=== PATIENT | male | born 1980 | race Caucasian/White ===

== ENCOUNTER 2017-05-16 17:09 | Emergency (ER) | payer OTHER ==
[2017-05-16 17:16] VITALS: TEMP 98.2; BMI 26.6
--- NOTE | 2017-05-16 17:23 | PDOC ---
History of Present Illness - History of Present Illness Initial Comments: 05/16/17 17:22 Mr. Vargas is a 36 yo male with no significant past medical history who presents to the emergency department with a one day history of crampy pain " Like a knife" to his R side radiating down to his groin. He says that pain comes and goes and has gotten worse over the last day. He denies any trauma or strain to this area. The patient denies chest pain, shortness of breath, headache and dizziness. Denies fever, chills, nausea, vomit, diarrhea and constipation. Denies dysuria, frequency, urgency and hematuria. Allergies: NKDA Past surgical history: None Social history: Social EtOH <Skyler Acevedo - Last Filed: 05/16/17 17:33> <Song Salinas - Last Filed: 05/17/17 01:11> - General Chief Complaint: Pain, Acute Stated Complaint: PAIN, ACUTE Time Seen by Provider: 05/16/17 17:21 Past History - Past Medical History Other medical history: denies. - Psycho/Social/Smoking Cessation Hx Suicidal Ideation: No Smoking History: Never smoked <Skyler Acevedo - Last Filed: 05/16/17 17:33> <Song Salinas - Last Filed: 05/17/17 01:11> - Past Medical History Allergies/Adverse Reactions: Allergies Allergy/AdvReac Type Severity Reaction Status Date / Time No Known Allergies Allergy Verified 05/16/17 17:13 Home Medications: Ambulatory Orders NK [No Known Home Medication] 05/16/17 Review of Systems - Review of Systems Comments:: 05/16/17 17:22 GENERAL/CONSTITUTIONAL: No fever or chills. No weakness. HEAD, EYES, EARS, NOSE AND THROAT: No change in vision. No ear pain or discharge. No sore throat. CARDIOVASCULAR: No chest pain or shortness of breath RESPIRATORY: No cough, wheezing, or hemoptysis. GASTROINTESTINAL: No nausea, vomiting, diarrhea or constipation. GENITOURINARY: +One day history of Right lower abdominal pain. No dysuria, frequency, or change in urination. MUSCULOSKELETAL: No joint or muscle swelling or pain. No neck or back pain. SKIN: No rash NEUROLOGIC: No headache, vertigo, loss of consciousness, or change in strength/ sensation. ENDOCRINE: No increased thirst. No abnormal weight change HEMATOLOGIC/LYMPHATIC: No anemia, easy bleeding, or history of blood clots. ALLERGIC/IMMUNOLOGIC: No hives or skin allergy. <Skyler Acevedo - Last Filed: 05/16/17 17:33> *Physical Exam - Vital Signs Last Vital Signs Temp Pulse Resp BP Pulse Ox 98.2 F 52 L 19 150/93 99 05/16/17 17:13 05/16/17 17:13 05/16/17 17:13 05/16/17 17:13 05/16/17 17:13 - Physical Exam Comments: 05/16/17 17:22 GENERAL: Awake, alert, and fully oriented, in no acute distress HEAD: No signs of trauma, normocephalic, atraumatic EYES: PERRLA, EOMI, sclera anicteric, conjunctiva clear ENT: Auricles normal inspection, hearing grossly normal, nares patent, oropharynx clear without exudates. Moist mucosa NECK: Normal ROM, supple, no lymphadenopathy, JVD, or masses LUNGS: No distress, speaks full sentences, clear to auscultation bilaterally HEART: Regular rate and rhythm, normal S1 and S2, no murmurs, rubs or gallops, peripheral pulses normal and equal bilaterally. ABDOMEN: +Some tenderness to palpation in right middle abdomen.Soft, normoactive bowel sounds. No guarding, no rebound. No masses EXTREMITIES: Normal inspection, Normal range of motion, no edema. No clubbing or cyanosis. NEUROLOGICAL: Cranial nerves II through XII grossly intact. Normal speech, normal gait, no focal sensorimotor deficits SKIN: Warm, Dry, normal turgor, no rashes or lesions noted. <Skyler Acevedo - Last Filed: 05/16/17 17:33> - Vital Signs Last Vital Signs Temp Pulse Resp BP Pulse Ox 98.2 F 75 16 132/78 96 05/16/17 17:13 05/16/17 22:53 05/16/17 22:53 05/16/17 22:53 05/16/17 22:53 <Song Salinas - Last Filed: 05/17/17 01:11> ED Treatment Course - LABORATORY CBC & Chemistry Diagram: 05/16/17 18:00 05/16/17 18:00 - ADDITIONAL ORDERS Additional order review: Laboratory Results 05/16/17 05/16/17 18:00 17:55 Sodium 139 Potassium 4.2 Chloride 104 Carbon Dioxide 27 Anion Gap 8 BUN 14 Creatinine 1.2 Creat Clearance w eGFR > 60 Random Glucose 83 Calcium 9.0 Total Bilirubin 1.8 H AST 83 H ALT 79 H Alkaline Phosphatase 55 Total Protein 6.8 Albumin 4.1 Urine Color Yellow Urine Appearance Clear Urine pH 5.0 Ur Specific [place] 1.025 Urine Protein Negative Urine Glucose (UA) Negative Urine Ketones 1+ H Urine Blood Negative Urine Nitrite Negative Urine Bilirubin Negative Urine Urobilinogen Negative Ur Leukocyte Esterase Negative 05/16/17 18:00 RBC 4.64 MCV 87.4 MCHC 34.3 RDW 13.5 MPV 8.7 Neutrophils % 66.7 Lymphocytes % 22.8 Monocytes % 9.1 Eosinophils % 0.9 Basophils % 0.5 - RADIOLOGY Radiology Studies Ordered: Category Date Time Status SPIRAL- RENAL-STONE CT [CT] Stat CT Scan 05/16/17 19:21 Completed GALLBLADDER US [US] Stat Ultrasound 05/16/17 21:01 Completed - Medications Given in the ED: ED Medications Discontinued Medications Generic Name Dose Route Start Last Admin Trade Name Freq PRN Reason Stop Dose Admin Sodium Chloride 1,000 mls @ 1,000 mls/hr 05/16/17 17:31 05/16/17 18:00 Normal Saline - IV 05/16/17 18:30 1,000 mls/hr ASDIR STA Administration Ketorolac Tromethamine 30 mg 05/16/17 21:01 05/16/17 21:00 Toradol Injection - IVPUSH 05/16/17 21:02 30 mg ONCE ONE Administration <Song Salinas - Last Filed: 05/17/17 01:11> Medical Decision Making - Medical Decision Making 05/16/17 18:57 Symptoms suspicious for kidney stone. UA ordered for F/U. Care will be continued by Dr. Salinas. <Skyler Acevedo - Last Filed: 05/16/17 17:33> *DC/Admit/Observation/Transfer - Attestations Physician Attestion: 05/16/17 18:59 I, Dr. Skyler Acevedo, attest that this document has been prepared under my direction and personally reviewed by me in its entirety. I further attest, that it accurately reflects all work, treatment, procedures and medical decision -making performed by me. <Skyler Acevedo - Last Filed: 05/16/17 17:33> - Discharge Dispostion Admit: No <Song Salinas - Last Filed: 05/17/17 01:11> Diagnosis at time of Disposition: Elevated liver enzymes Strain of abdominal muscle Qualifiers: Encounter type: initial encounter Qualified Code(s): S39.011A - Strain of muscle, fascia and tendon of abdomen, initial encounter - Discharge Dispostion Disposition: HOME Condition at time of disposition: Improved - Patient Instructions Printed Discharge Instructions: DI for Abdominal Muscle Strain Additional Instructions: Return to the emergency department immediately with ANY new, persistent or worsening symptoms. Avoid training, take Motrin/Tylenol. Apply heating pad to the area discomfort. Your liver enzymes were elevated please follow-up with Dr. Mejía should to have this repeated and reevaluated. You MUST call and follow up with your doctor tomorrow for further evaluation of your symptoms. Results were discussed with you. Please make sure your doctor reviews the results of your emergency evaluation. Print Language: MONEGASQUE
[2017-05-16] MEDS ORDERED: SODIUM CHLORIDE 1,000 ML IV STA (17:31)
--- NOTE | 2017-05-16 17:42 | PDOC ---
Attending Attestation - Resident Resident Name: Skyler Acevedo - ED Attending Attestation I have performed the following: I have examined & evaluated the patient, The case was reviewed & discussed with the resident, I agree w/resident's findings & plan, Exceptions are as noted - HPI HPI: 05/16/17 19:19 36y M no pmhx presents with complaint of abodminal pain, pain is worse inthe RLQ , gradually worsening, constant, and occasinoally radiates down to the R scrotum. No associated fever/chills, n/v, diarrhea, dysuria, hematuria. GENERAL: The patient is awake, alert, and fully oriented, Nontoxic - in no acute distress. HEAD: Normocephalic, atraumatic. EYES: extraocular movements intact, sclera anicteric, conjunctiva clear. ENT: Normal voice, Moist mucous membranes. NECK: Normal range of motion, supple LUNGS: Breath sounds equal, clear to auscultation bilaterally. No wheezes, no rhonchi, no rales. HEART: Regular rate and rhythm, normal S1 and S2 without murmur, rub or gallop. ABDOMEN: Soft, minimal RLQ tenderness, normoactive bowel sounds. No guarding, no rebound. . No CVA tenderness : non scrotal tenderness, edema/erytthema. EXTREMITIES: Normal range of motion, no edema. No clubbing or cyanosis. No cords, erythema, or tenderness. NEUROLOGICAL: No facial assymetry, Normal speech, PSYCH: Normal mood, normal affect. SKIN: Warm, Dry, normal turgor, consider possible kidney stone vs appy richard obtian blood work, UA pt declines pain meds 05/16/17 21:02 pts labs reviewed noted for mildly elevated liver enzymes, will obtain US of GB ct neg for appy nor kidney stones pt still complaining of pain consider possible muscle strain as pt was playing [place] ball yetserday and the pain does seem worse with ambulation, standing and movement. will give toradol 05/17/17 01:08 pts US is negative pt feeling improved, abd was soft nontender on repeat exam will d/c the pt with PMD fu will hav ept fu with dr. Mejía regarding his elevated LFTs. I discussed the physical exam findings, ancillary test results and final diagnoses with the patient. I answered all of the patient's questions. The patient was satisfied with the care received and felt comfortable with the discharge plan and treatment plan. The patient will call their primary care physician within 24 hours to arrange follow-up and will return to the Emergency Department with any new, persistent or worsening symptoms. - Physicial Exam PE: 05/17/17 02:23 see above - Medical Decision Making 05/17/17 02:23 see above
[2017-05-16 18:17] LABS: BASOPHIL 0.5 % (0-2.0); EOSINOPHIL 0.9 % (0-4.5); MCH 29.9 pg (25.7-33.7); MCHC 34.3 g/dl (32.0-35.9); MEAN CELL VOLUME 87.4 fl (80-96); MEAN PLT VOLUME 8.7 fl (7.5-11.1); NEUTROPHILS 66.7 % (42.8-82.8); PLATELET COUNT 199 K/MM3 (134-434); RDW 13.5 % (11.9-15.9); WHITE BLOOD COUNT 8.5 K/mm3 (4.0-10.0)
[2017-05-16 18:19] LABS: URINE APPEARANCE CLEAR; URINE BILIRUBIN NEGATIVE (NEGATIVE); URINE BLOOD NEGATIVE (NEGATIVE); URINE COLOR YELLOW; URINE GLUCOSE (UA) NEGATIVE (NEGATIVE); URINE KETONE 1+ (NEGATIVE); URINE LEUK ESTERASE NEGATIVE (NEGATIVE); URINE NITRITE NEGATIVE (NEGATIVE); URINE PROTEIN NEGATIVE (NEGATIVE); URINE UROBILINOGEN NEGATIVE mg/dL (0.2-1.0)
[2017-05-16 19:55] LABS: ALBUMIN 4.1 g/dl (3.4-5.0); ALK PHOS 55 U/L (45-117); ANION GAP 8 (8-16); BILIRUBIN,TOTAL 1.8 mg/dL (0.2-1.0); CO2 27 mmol/L (21-32); CREATININE 1.2 mg/dL (0.7-1.3); GLUCOSE,RANDOM 83 mg/dL (74-106); SGOT/AST 83 U/L (15-37); SGPT/ALT 79 U/L (12-78); TOT PROT 6.8 g/dl (6.4-8.2)
[2017-05-16] MEDS ORDERED: KETOROLAC TROMETHAMINE 60 MG/2 ML VIAL ONE (21:00)
[2017-05-16] MEDS ORDERED: KETOROLAC TROMETHAMINE 30 MG/1 ML VIAL IVPUSH ONE (21:01)
[2017-05-16 22:55] VITALS: BP 132/78; PULSE 75
== END 2017-05-17 01:13 | disposition home or self-care (01) ==
LOC: JER 17:09
PROC: 3E0333Z Introduction of Anti-inflammatory into Peripheral Vein, Percutaneous Approach (ICD-10-PCS; principal; 2017-05-16)
PROC: 3E0337Z Introduction of Electrolytic and Water Balance Substance into Peripheral Vein, Percutaneous Approach (ICD-10-PCS; 2017-05-16)
DX: S39.011A Strain of muscle, fascia and tendon of abdomen, initial encounter (principal); R74.8 Abnormal levels of other serum enzymes
CPT/HCPCS: 36415; 74176; 76705-TC; 80053; 81003; 85025; 99282-25

== ENCOUNTER 2021-09-03 14:54 | Emergency (ER) | payer OTHER ==
[2021-09-03 15:10] VITALS: BP 144/86; PULSE 58; TEMP 97.8; BMI 27.3
== END 2021-09-03 18:15 | disposition home or self-care (01) ==
LOC: JERFT 14:54 → JER 14:54
DX: R51.9 Headache, unspecified (principal)
CPT/HCPCS: 70450-TC; 70480-TC; 99285-25; C9803; U0003; U0005